=== PATIENT | female | born 2005 | race Hispanic/Latino ===

== ENCOUNTER → 2025-01-07 10:52 | Outpatient (REF) | payer OTHER, SELFPAY | LOC: HWRAD 10:52 | PROVIDERS: ATTENDING PHYSICIAN Internal Medicine Gastroenterology; FAMILY PHYSICIAN Pediatrics | DX: R10.13 Epigastric pain (principal); R10.33 Periumbilical pain; R11.0 Nausea; R63.4 Abnormal weight loss | CPT/HCPCS: 74176 ==